=== PATIENT | male | born 1995 | race Caucasian/White ===

== ENCOUNTER 2018-07-24 00:11 | Emergency (ER) | payer BC ==
--- NOTE | 2018-07-24 00:51 | EDM.PDOC ---
ED HPI GENERAL MEDICAL PROBLEM - General Chief Complaint: ENT Problem Stated Complaint: NOSE BLEED 45 MIN Time Seen by Provider: 07/24/18 00:22 Source of Information: Reports: Patient, RN Notes Reviewed, Significant Other ( Girlfriend) History Limitations: Reports: No Limitations - History of Present Illness INITIAL COMMENTS - FREE TEXT/NARRATIVE: The patient states that he developed left-sided epistaxis around 23:30. He inserted one of his girlfriends tampons, which successfully stopped the bleeding. The patient denies trauma to the nose. He acknowledges that he does not have a humidifier in his residence. The patient reports that he gets frequent epistaxis, approximately twice a month , always on the left. He last saw an ENT about 2 years ago. The patient's PCP is Dr. Sousa. - Related Data Allergies Allergy/AdvReac Type Severity Reaction Status Date / Time vancomycin AdvReac Intermediate Itching Verified 03/28/18 11:05 Home Meds: Home Meds Dextroamphetamine/Amphetamine [Adderall 20 mg Tablet] 20 mg PO DAILY 03/28/18 [ History] Escitalopram [Lexapro] 10 mg PO DAILY 03/28/18 [History] Past Medical History HEENT History: Reports: Epistaxis (around 2x/month, always on the left) Gastrointestinal History: Reports: Other (See Below) (Anal fissure) Neurological History: Reports: Other (See Below) (Hydrocephalus, etiology unknown) Psychiatric History: Reports: ADHD, Anxiety, Panic Attack - Past Surgical History HEENT Surgical History: Reports: Adenoidectomy, Tonsillectomy Social & Family History - Family History Family Medical History: Noncontributory Oncologic: Reports: Prostate - Tobacco Use Smoking Status *Q: Never Smoker - Caffeine Use Caffeine Use: Reports: Tea - Alcohol Use Alcohol Use History: Yes Alcohol Use Frequency: Socially - Recreational Drug Use Recreational Drug Use: Yes Drug Use in Last 12 Months: No Recreational Drug Type: Reports: Marijuana/Hashish (last smoked in 2014) - Living Situation & Occupation Living situation: Reports: Single, with Family Occupation: Unemployed ED ROS ENT - Review of Systems Review Of Systems: ROS reveals no pertinent complaints other than HPI. ED EXAM, ENT - Physical Exam Exam: See Below Exam Limited By: No Limitations General Appearance: Alert, WD/WN, No Apparent Distress Eye Exam: Bilateral Eye: EOMI, Normal Inspection Ears: Normal External Exam, Normal Canal, Hearing Grossly Normal, Normal TMs Nose: No Blood, Other (Visible vessels noticeable on both sides of the nasal septum, Lt > Rt). No: Active Bleeding, Dried Blood Mouth/Throat: Normal Inspection, Normal Gums, Normal Lips, Normal Oropharynx ( no posterior oropharyngeal blood), Normal Teeth Head: Atraumatic, Normocephalic Course - Vital Signs Last Recorded V/S: Last Vital Signs Temp 36.3 C 07/24/18 00:23 Pulse 82 07/24/18 00:23 Resp 18 07/24/18 00:23 BP 142/85 H 07/24/18 00:23 Pulse Ox 100 07/24/18 00:23 - Re-Assessments/Exams Free Text/Narrative Re-Assessment/Exam: 07/24/18 00:47 When the nasal tampon was removed from the patient's left nostril, there was no active bleeding, and, in fact, I don't see any dried blood either in his nostril or in the back of his throat. He has numerous prominent vessels, on both sides, which puts him at risk for nosebleeds, but I don't see an indication for cauterization at this time. Going forward, I am recommending that he begin using a humidifier in his house, and apply a thin smear of Vaseline petroleum jelly to the bilateral nasal septae. I will refer him to ENT , should his nosebleeds continue. Departure - Departure Time of Disposition: 00:49 Disposition: Home, Self-Care 01 Condition: Good Clinical Impression: Left-sided epistaxis - Discharge Information *PRESCRIPTION DRUG MONITORING PROGRAM REVIEWED*: Not Applicable *COPY OF PRESCRIPTION DRUG MONITORING REPORT IN PATIENT SHADY: Not Applicable Instructions: Nosebleed, Adult Referrals: Ruben Sousa MD [Primary Care Provider] - Fritz Palacios MD [Ordering Only Provider] - Forms: ED Department Discharge Additional Instructions: You were seen in the emergency room for a left-sided nosebleed. On examination in the ER, the bleeding had already stopped, and while you have numerous visible vessels on both sides of your nostrils, no intervention was indicated. Going forward, we recommend that you installed a humidifier in your house/ bedroom, and apply a thin smear of Vaseline petroleum jelly to both sides of your nasal septum. If your nose bleeds again, sit upright, tilt your head slightly forward, and pinch your nostrils tightly for 10-15 minutes. This stops the vast majority of nosebleeds. If your nose bleeds despite these efforts, please return to the ER for reevaluation.
== END 2018-07-24 00:55 | disposition home or self-care (01) ==
LOC: JD.ED 00:11
DX: R04.0 Epistaxis (principal); Z88.1 Allergy status to other antibiotic agents; Z79.899 Other long term (current) drug therapy
CPT/HCPCS: 99281; 99283